=== PATIENT | male | born 1960 | race Two or more races ===

== ENCOUNTER 2023-02-10 15:50 | Emergency (ER) | payer OTHER ==
[~2023-02-10] VITALS: Ht 162.6 cm; Wt 74.8 kg
[2023-02-10 16:58] VITALS: BP 146/91
[2023-02-10] MEDS ORDERED: HYDROcodone-ACET 5/325MG TAB PO ONE (17:15)
[2023-02-10] MEDS ORDERED: TETANUS-DIPTH-ACEL PERTUSSIS 0.5ML SYR Tdap IM ONE (17:30)
[2023-02-10] MEDS ORDERED: LIDOCAINE 1% HCL (LOCAL ANESTH.) INJ 20ML MDV IJ ONE (17:30)
[2023-02-10] MEDS ORDERED: CEPH-510 PO (18:15)
[2023-02-10] MEDS ORDERED: HYDR-4902 PO (18:45)
[2023-02-10] MEDS ORDERED: IBUP600T28 PO (18:47)
[2023-02-11] MEDS ORDERED: CEPH-510 PO (15:00)
[2023-02-11] MEDS ORDERED: HYDR-4902 PO (15:00)
[2023-02-11] MEDS ORDERED: IBUP600T28 PO (15:00)
== END 2023-02-10 18:50 | disposition home or self-care (01) ==
LOC: ER 15:50
DX: S62.521B Displaced fracture of distal phalanx of right thumb, initial encounter for open fracture (principal); W26.9XXA Contact with unspecified sharp object(s), initial encounter; Y93.89 Activity, other specified; Y92.89 Other specified places as the place of occurrence of the external cause; Y99.8 Other external cause status
CPT/HCPCS: 12001; 73130; 90471; 90715; 99283; J2001

== ENCOUNTER 2023-02-11 11:27 | Emergency (ER) | payer OTHER ==
[~2023-02-11] VITALS: Ht 162.6 cm; Wt 75.8 kg
[~2023-02-11 11:27] MED LIST: CEPH-510 PO; HYDR-4902 PO; IBUP600T28 PO
[2023-02-11 13:54] VITALS: BP 105/85
[2023-02-11] MEDS ORDERED: HYDR-4902 PO (15:00)
[2023-02-11] MEDS ORDERED: IBUP600T28 PO (15:00)
[2023-02-11] MEDS ORDERED: CEPH-510 PO (15:00)
== END 2023-02-11 15:11 | disposition home or self-care (01) ==
LOC: ER 11:27
DX: S62.501D Fracture of unspecified phalanx of right thumb, subsequent encounter for fracture with routine healing (principal); E78.5 Hyperlipidemia, unspecified; Z79.1 Long term (current) use of non-steroidal anti-inflammatories (NSAID); Z79.899 Other long term (current) drug therapy; X58.XXXD Exposure to other specified factors, subsequent encounter

== ENCOUNTER 2023-02-15 09:00 | Emergency (ER) | payer OTHER ==
[~2023-02-15] VITALS: Ht 162.6 cm; Wt 75.0 kg
[2023-02-15 09:44] VITALS: BP 119/78
== END 2023-02-15 09:48 | disposition home or self-care (01) ==
LOC: ER 09:00
DX: S61.111D Laceration without foreign body of right thumb with damage to nail, subsequent encounter (principal); E78.5 Hyperlipidemia, unspecified; Z79.899 Other long term (current) drug therapy; X58.XXXD Exposure to other specified factors, subsequent encounter